=== PATIENT | female | born 1945 | race Caucasian/White ===

== ENCOUNTER → 2021-01-02 | Outpatient (CLI) | payer MEDICARE ==
[~2021-01-02] MED LIST: ACET325T14 PO; ASPI325T17 PO; CALC1CAP8 PO; CALC3.7S5 NS; DULO60CA7 PO; GABA300C PO; OMEP20TA62 PO
[2021-01-02 16:38] LABS: BASOPHILS % (AUTO) 1 % (0-1); EOSINOPHILS % (AUTO) 1 % (1-7); LYMPHOCYTES % (AUTO) 28 % (22-44); MEAN CORPUSCULAR HEMOGLOBIN 32.6 pg (27.0-34.8); MEAN PLATELET VOLUME 8.2 fL (7.4-10.4); MONOCYTES % (AUTO) 9 % (2-9); NEUTROPHILS % (AUTO) 61 % (42-75); PLATELET COUNT 246 x10^3/uL (130-400); RED BLOOD COUNT 4.52 x10^6/uL (3.82-5.3); RED CELL DISTRIBUTION WIDTH 14.6 % (9.6-15.2)
[2021-01-02 16:40] LABS: MD NO
[2021-01-02 16:44] LABS: ANION GAP 4 mmol/L (5-15); CALCIUM 9.7 mg/dL (8.5-10.1); CHLORIDE 105 mmol/L (98-107); CREATININE 0.84 mg/dL (0.55-1.02)
== END | disposition home or self-care (01) ==
LOC: STAR 15:43
PROVIDERS: ATTEND Surgery
DX: Z01.818 Encounter for other preprocedural examination (principal); K57.20 Diverticulitis of large intestine with perforation and abscess without bleeding; Z20.822 Contact with and (suspected) exposure to COVID-19
CPT/HCPCS: 36415; 80048; 85025; 93005; U0003; U0005

== ENCOUNTER 2021-01-08 12:34 | Inpatient (IN) | payer MEDICARE ==
[~2021-01-08] VITALS: Ht 149.9 cm; Wt 65.3 kg
[2021-01-08 13:19] VITALS: BP 160/87
[2021-01-08] MEDS ORDERED: LACTATED RINGERS 1,000 ML IV SCH (13:30)
[2021-01-08] MEDS ORDERED: CHLORHEXIDINE 15 ML UDC PO ONE (13:30)
[2021-01-08] MEDS ORDERED: FENTANYL PF 250 MCG/5ML ONE (14:59)
[2021-01-08] MEDS ORDERED: MIDAZOLAM 1 MG/ML, 2ML ONE (14:59)
[2021-01-08] MEDS ORDERED: ROCURONIUM 10MG/ML,5ML ONE (15:03)
[2021-01-08] MEDS ORDERED: PROPOFOL 10 MG/ML, 20ML ONE (15:03)
[2021-01-08] MEDS ORDERED: SUCCINYLCHOLINE 20 MG/ML, 10ML ONE (15:03)
[2021-01-08] MEDS ORDERED: ONDANSETRON 2MG/ML, 2ML ONE (15:04)
[2021-01-08] MEDS ORDERED: DEXAMETHASONE 4 MG/ML, 1ML ONE (15:04)
[2021-01-08] MEDS ORDERED: DIAZEPAM 5 MG/ML, 2ML IVPush PRN (15:30)
[2021-01-08] MEDS ORDERED: DIPHENHYDRAMINE 50 MG/ML, 1ML IVPush PRN (15:30)
[2021-01-08] MEDS ORDERED: morphine SULFATE 10 MG/ML, 1ML IVPush PRN (15:30)
[2021-01-08] MEDS ORDERED: EPHEDRINE 50 MG/ML, 1ML IVPush PRN (15:30)
[2021-01-08] MEDS ORDERED: LABETALOL 5MG/ML, 20ML IV PRN (15:30)
[2021-01-08] MEDS ORDERED: OXYcodone 5 MG/5 ML ORAL.SOL UDC PO PRN (15:30)
[2021-01-08] MEDS ORDERED: EPHEDRINE 50 MG/ML, 1ML IM PRN (15:30)
[2021-01-08] MEDS ORDERED: ONDANSETRON 2MG/ML, 2ML IVPush PRN ×2 (15:30→21:00)
[2021-01-08] MEDS ORDERED: MEPERIDINE/PF 25MG/0.5ML IVPush PRN (15:30)
[2021-01-08] MEDS ORDERED: PROMETHAZINE 25 MG/ML, 1ML IVPush PRN (15:30)
[2021-01-08] MEDS ORDERED: CEFOTETAN 1 GM ONE (15:33)
[2021-01-08] MEDS ORDERED: PROPOFOL 50 ML ONE (16:32)
[2021-01-08] MEDS ORDERED: HYDROmorphone 1 MG/ML, 1ML INJ ONE ×2 (16:55→18:37)
[2021-01-08] MEDS ORDERED: FENTANYL PF 100 MCG/2ML ONE (18:37)
[2021-01-08] MEDS: FENTANYL PF 100 MCG/2ML IV PRN ×2 (18:39→18:44)
[2021-01-08] MEDS ORDERED: METHOCARBAMOL 1,000 MG in DEXTROSE 5% 100 ML IV PRN (19:00)
[2021-01-08] MEDS: HYDROmorphone 1 MG/ML, 1ML INJ IVPush PRN ×2 (19:33→19:40)
[2021-01-08 20:30] VITALS: BP 133/66
[2021-01-08] MEDS ORDERED: hydrALAzine 20 MG/ML, 1ML IV PRN (21:00)
[2021-01-08] MEDS: D5%-LR+KCL 20MEQ 1,000 ML IV SCH (23:34)
[2021-01-09 00:33] VITALS: BP 151/70
[2021-01-09] MEDS: CEFOTETAN PMX 2GM/50ML 50 ML IV SCH ×2 (03:01→15:28)
[2021-01-09 03:37] LABS: BASOPHILS % (AUTO) 0 % (0-1); EOSINOPHILS % (AUTO) 0 % (1-7); LYMPHOCYTES % (AUTO) 8 % (22-44); MEAN CORPUSCULAR HEMOGLOBIN 32.9 pg (27.0-34.8); MEAN CORPUSCULAR HGB CONC 34.6 g/dL (32.4-35.8); MEAN PLATELET VOLUME 8.3 fL (7.4-10.4); MONOCYTES % (AUTO) 9 % (2-9); NEUTROPHILS % (AUTO) 83 % (42-75); PLATELET COUNT 235 x10^3/uL (130-400); RED BLOOD COUNT 4.39 x10^6/uL (3.82-5.3); RED CELL DISTRIBUTION WIDTH 14.4 % (9.6-15.2)
[2021-01-09 03:47] LABS: MD NO
[2021-01-09 03:49] LABS: ALBUMIN 3.3 g/dL (3.4-5.0); ANION GAP 4 mmol/L (5-15); CALCIUM 8.8 mg/dL (8.5-10.1); CHLORIDE 110 mmol/L (98-107)
[2021-01-09 04:08] VITALS: BP 131/63
[2021-01-09] MEDS: ENOXAPARIN 40 MG/0.4 ML SQ SCH (05:51)
[2021-01-09 08:35] VITALS: BP 115/69
[2021-01-09] MEDS: D5%-LR+KCL 20MEQ 1,000 ML IV SCH ×2 (10:03→20:40)
[2021-01-09] MEDS: PANTOPRAZOLE 40 MG IV IVPush SCH (10:04)
[2021-01-09 13:42] VITALS: BP 116/74
[2021-01-09 18:43] VITALS: BP 129/74
[2021-01-09] MEDS ORDERED: PHENOL THROAT SPRAY BOTTLE MM PRN (19:00)
[2021-01-10 01:30] VITALS: BP 131/75
[2021-01-10 02:58] LABS: BASOPHILS % (AUTO) 1 % (0-1); EOSINOPHILS % (AUTO) 1 % (1-7); LYMPHOCYTES % (AUTO) 11 % (22-44); MD NO; MEAN CORPUSCULAR HEMOGLOBIN 32.8 pg (27.0-34.8); MEAN CORPUSCULAR HGB CONC 34.3 g/dL (32.4-35.8); MEAN PLATELET VOLUME 7.9 fL (7.4-10.4); MONOCYTES % (AUTO) 11 % (2-9); NEUTROPHILS % (AUTO) 77 % (42-75); PLATELET COUNT 207 x10^3/uL (130-400); RED BLOOD COUNT 4.11 x10^6/uL (3.82-5.3); RED CELL DISTRIBUTION WIDTH 14.6 % (9.6-15.2)
[2021-01-10 03:07] LABS: ALBUMIN 2.8 g/dL (3.4-5.0); ANION GAP 4 mmol/L (5-15); CALCIUM 8.8 mg/dL (8.5-10.1); CHLORIDE 111 mmol/L (98-107); CREATININE 0.81 mg/dL (0.55-1.02)
[2021-01-10] MEDS: CEFOTETAN PMX 2GM/50ML 50 ML IV SCH ×3 (04:19→15:21)
[2021-01-10] MEDS: D5%-LR+KCL 20MEQ 1,000 ML IV SCH ×2 (05:15→15:22)
[2021-01-10] MEDS: ENOXAPARIN 40 MG/0.4 ML SQ SCH (05:31)
[2021-01-10 06:28] VITALS: BP 119/69
[2021-01-10] MEDS: PANTOPRAZOLE 40 MG IV IVPush SCH (09:25)
[2021-01-10 13:58] VITALS: BP 123/72
[2021-01-10 20:44] VITALS: BP 122/52
[2021-01-11] MEDS: D5%-LR+KCL 20MEQ 1,000 ML IV SCH ×2 (01:03→15:02)
[2021-01-11 02:21] VITALS: BP 124/72
[2021-01-11] MEDS: CEFOTETAN PMX 2GM/50ML 50 ML IV SCH ×2 (02:48→15:06)
[2021-01-11 03:30] LABS: BASOPHILS % (AUTO) 0 % (0-1); EOSINOPHILS % (AUTO) 2 % (1-7); LYMPHOCYTES % (AUTO) 11 % (22-44); MEAN CORPUSCULAR HEMOGLOBIN 32.9 pg (27.0-34.8); MEAN CORPUSCULAR HGB CONC 34.3 g/dL (32.4-35.8); MONOCYTES % (AUTO) 10 % (2-9); NEUTROPHILS % (AUTO) 77 % (42-75); PLATELET COUNT 188 x10^3/uL (130-400); RED BLOOD COUNT 3.83 x10^6/uL (3.82-5.3); RED CELL DISTRIBUTION WIDTH 14.6 % (9.6-15.2)
[2021-01-11 03:35] LABS: MD NO
[2021-01-11 03:40] LABS: ALBUMIN 2.4 g/dL (3.4-5.0); ANION GAP 4 mmol/L (5-15); CALCIUM 8.6 mg/dL (8.5-10.1); CHLORIDE 108 mmol/L (98-107); CREATININE 1.18 mg/dL (0.55-1.02)
[2021-01-11] MEDS: ENOXAPARIN 40 MG/0.4 ML SQ SCH (05:47)
[2021-01-11 06:43] VITALS: BP 118/74
[2021-01-11] MEDS: PANTOPRAZOLE 40 MG IV IVPush SCH (08:53)
[2021-01-11 12:04] VITALS: BP 122/77
[2021-01-11 19:47] VITALS: BP 120/69
[2021-01-12] MEDS: D5%-LR+KCL 20MEQ 1,000 ML IV SCH ×3 (01:07→14:46)
[2021-01-12 01:13] VITALS: BP 113/57
[2021-01-12] MEDS: CEFOTETAN PMX 2GM/50ML 50 ML IV SCH ×2 (03:13→14:46)
[2021-01-12] MEDS: ENOXAPARIN 40 MG/0.4 ML SQ SCH (06:11)
[2021-01-12 06:51] VITALS: BP 113/75
[2021-01-12] MEDS: PANTOPRAZOLE 40 MG IV IVPush SCH (08:26)
[2021-01-12] MEDS ORDERED: ACETAMINOPHEN 500 MG TABLET PO PRN (11:30)
[2021-01-12 14:08] VITALS: BP 125/75
[2021-01-12] MEDS: HYDROcodone/APAP 5/325 TABLET PO PRN (14:46)
[2021-01-12 14:49] LABS: CLOSTRIDIUM DIFFICILE ANTIGEN NEGATIVE; CLOSTRIDIUM DIFFICILE TOXIN NEGATIVE (Negative)
[2021-01-12 20:26] VITALS: BP 120/72
[2021-01-13] MEDS: HYDROcodone/APAP 5/325 TABLET PO PRN ×2 (00:02→11:04)
[2021-01-13] MEDS: D5%-LR+KCL 20MEQ 1,000 ML IV SCH (01:00)
[2021-01-13 01:54] VITALS: BP 142/80
[2021-01-13] MEDS: CEFOTETAN PMX 2GM/50ML 50 ML IV SCH (03:57)
[2021-01-13] MEDS: ENOXAPARIN 40 MG/0.4 ML SQ SCH (05:39)
[2021-01-13 07:26] VITALS: BP 130/77
[2021-01-13] MEDS ORDERED: HYDR-2214 PO (07:34)
[2021-01-13] MEDS: PANTOPRAZOLE 40 MG IV IVPush SCH (08:05)
[2021-01-13 11:16] VITALS: BP 132/64
== END 2021-01-13 14:28 | disposition still patient (30) | DRG 329 ==
LOC: ORIP 12:55 → EDSTATUS 15:00 → 4NE 20:30
PROVIDERS: ADMIT Surgery; ATTEND Surgery
PROC: 0DJD8ZZ Inspection of Lower Intestinal Tract, Via Natural or Artificial Opening Endoscopic (ICD-10-PCS; 2021-01-08)
PROC: 0DSP0ZZ Reposition Rectum, Open Approach (ICD-10-PCS; principal; 2021-01-08 15:00)
DX: K57.20 Diverticulitis of large intestine with perforation and abscess without bleeding (principal); K65.0 Generalized (acute) peritonitis; Z90.49 Acquired absence of other specified parts of digestive tract; Z93.3 Colostomy status; Z98.0 Intestinal bypass and anastomosis status; M19.90 Unspecified osteoarthritis, unspecified site
CPT/HCPCS: 36415; 74018; 80048; 82040; 85025; 87324; G0378; J1100; J1170; J1650; J2250; J2270; J2405; J2704; J3010; C9113; J0330; J2800; J3480; J7120

== ENCOUNTER → 2021-02-21 | Outpatient (CLI) | payer MEDICARE ==
[~2021-02-21] MED LIST changes: +HYDR-2214 PO; +OMNIPAQUE 350 MG/ML, 100ML BOTTLE ONE
== END | disposition home or self-care (01) ==
LOC: CFH 10:32
PROVIDERS: ATTEND Surgery
DX: K44.9 Diaphragmatic hernia without obstruction or gangrene (principal); N28.1 Cyst of kidney, acquired; M43.8X4 Other specified deforming dorsopathies, thoracic region; M47.815 Spondylosis without myelopathy or radiculopathy, thoracolumbar region; Q89.09 Congenital malformations of spleen; R10.9 Unspecified abdominal pain
CPT/HCPCS: 74177; Q9967